=== PATIENT | male | born 1980 | race Caucasian/White ===

== ENCOUNTER 2018-06-18 17:09 | Emergency (ER) | payer OTHER ==
[2018-06-18] MEDS ORDERED: NS 1,000 ML IV ONE (17:30)
--- NOTE | 2018-06-18 17:31 | EDPHY ---
H & P Stated Complaint: L flank pn c early hematuria x2D, Hx kidney stone Time Seen by Provider: 06/18/18 17:20 HPI/ROS: Chief complaint: Left flank pain History of present illness: This is a 37-year-old male who presents to the emergency department for evaluation of left flank pain. Reports the onset of symptoms 2 days ago. He has had associated hematuria. Describes sharp pain radiating around toward the growing. He does have a history of kidney stones, he has had 4 5 and his life. They voiced pass on their own, not requiring surgical intervention. She states the pain is somewhat different than previous episodes which is wearing him. He denies other associated signs or symptoms including no fevers, no abdominal pain, no nausea, vomiting or diarrhea. Review of systems: A 10 point review of systems was obtained and other than described above was negative - Personal History Current Tetanus/Diphtheria Vaccine: Yes - Medical/Surgical History Hx Asthma: No Hx Chronic Respiratory Disease: No Hx Diabetes: No Hx Cardiac Disease: No Hx Renal Disease: No Hx Cirrhosis: No Hx Alcoholism: No Hx HIV/AIDS: No Hx Splenectomy or Spleen Trauma: No Other PMH: Kidney stones, asthma, - Social History Smoking Status: Never smoked - Physical Exam Exam: General Appearance: Alert, nontoxic. Eyes: Pupils equal and round no pallor or injection. ENT, Mouth: Mucous membranes moist. Respiratory: There are no retractions, lungs are clear to auscultation. Cardiovascular: Regular rate and rhythm. Gastrointestinal: Abdomen is soft and non tender, no masses, bowel sounds normal. Genitourinary: Left-sided CVA tenderness. Neurological: Alert and oriented x4. Skin: Warm and dry, no rashes. Musculoskeletal: Neck is supple non tender. Extremities are symmetrical, full range of motion. Psychiatric: Patient is oriented X 3, there is no agitation. Constitutional: Initial Vital Signs Temperature (C) 36.8 C 06/18/18 17:22 Heart Rate 84 06/18/18 17:22 Respiratory Rate 18 06/18/18 17:22 Blood Pressure 120/85 H 06/18/18 17:22 O2 Sat (%) 97 06/18/18 17:22 O2 Delivery Mode Room Air Allergies/Adverse Reactions: Penicillins Allergy (Verified 06/18/18 17:22) Medical Decision Making - Diagnostics Imaging Results: Imaging Impressions Abdomen/Pelvis CT 06/18/18 17:30 Impression: 1. An 11-mm calculus in the distal left ureter, with severe left hydronephrosis and hydroureter. There is no significant perinephric stranding around the left kidney and some renal cortical thinning suggesting this may be chronic. 2. Nonspecific prostate calcifications. 3. Degenerative disk disease at L3-L4. Results called and discussed with SABINA Addison, on June 18, 2018 at 1757. Attention: This CT examination is specifically designed to evaluate patients who are clinically suspected of having acute obstructive uropathy. This examination does not use radiographic contrast, and as such, provides only a limited evaluation of the abdomen, pelvis, and retroperitoneum. If there is further clinical suspicion for pathological conditions other than obstructive uropathy, a complete CT evaluation of the abdomen and pelvis utilizing intravenous, oral, and rectal contrast should be considered. Imaging: Discussed imaging studies w/ call person Radiologist ED Course/Re-evaluation: Patient is discussed with my secondary supervising physician Dr. Christopher Koenig. Patient presents to the emergency department for left flank pain. CT confirms a ureteral stone. It is very large in size, approximately 11 mm. Patient has remained well appearing the entire time in the emergency room. He has not required pain medicine. I have consulted with Dr. Wisdom of Urology. He is comfortable with this patient following up in clinic tomorrow. Patient was given contact information for Dr. Wisdom's office. I talked to the patient at length that he must follow up tomorrow with Dr. Wisdom for further evaluation and care. Strict return precautions were given. The patient voiced understanding and agreement with plan. Differential Diagnosis: Included but not limited to nephrolithiasis, pyelonephritis, cystitis, intra- abdominal pathology - Data Points Laboratory Results: Laboratory Results 06/18/18 17:35 06/18/18 17:35 06/18/18 06/18/18 06/18/18 18:30 17:35 17:35 WBC 7.50 10^3/uL 10^3/uL (3.80-9.50) RBC 4.66 10^6/uL 10^6/uL (4.40-6.38) Hgb 14.9 g/dL g/dL (13.7-17.5) Hct 43.7 % % (40.0-51.0) MCV 93.8 fL fL (81.5-99.8) MCH 32.0 pg pg (27.9-34.1) MCHC 34.1 g/dL g/dL (32.4-36.7) RDW 12.5 % % (11.5-15.2) Plt Count 261 10^3/uL 10^3/uL (150-400) MPV 10.5 fL fL (8.7-11.7) Neut % (Auto) 45.7 % % (39.3-74.2) Lymph % (Auto) 38.1 % % (15.0-45.0) [place] % (Auto) 11.5 % % (4.5-13.0) Eos % (Auto) 3.5 % % (0.6-7.6) Baso % (Auto) 0.8 % % (0.3-1.7) Nucleat RBC Rel Count 0.0 % % (0.0-0.2) Absolute Neuts (auto) 3.43 10^3/uL 10^3/uL (1.70-6.50) Absolute Lymphs (auto) 2.86 10^3/uL 10^3/uL (1.00-3.00) Absolute Monos (auto) 0.86 10^3/uL H 10^3/uL (0.30-0.80) Absolute Eos (auto) 0.26 10^3/uL 10^3/uL (0.03-0.40) Absolute Basos (auto) 0.06 10^3/uL 10^3/uL (0.02-0.10) Absolute Nucleated RBC 0.00 10^3/uL 10^3/uL (0-0.01) Immature Gran % 0.4 % % (0.0-1.1) Immature Gran # 0.03 10^3/uL 10^3/uL (0.00-0.10) Sodium 136 mEq/L mEq/L (135-145) Potassium 4.1 mEq/L mEq/L (3.5-5.2) Chloride 103 mEq/L mEq/L (97-110) Carbon Dioxide 23 mEq/l mEq/l (22-31) Anion Gap 10 mEq/L mEq/L (6-14) BUN 17 mg/dL mg/dL (7-23) Creatinine 0.9 mg/dL mg/dL (0.7-1.3) Estimated GFR > 60 Glucose 94 mg/dL mg/dL (70-100) Calcium 9.7 mg/dL mg/dL (8.5-10.4) Urine Color PALE YELLOW Urine Appearance CLEAR Urine pH 7.0 (5.0-7.5) Ur Specific [place] 1.006 (1.002-1.030) Urine Protein NEGATIVE (NEGATIVE) Urine Ketones NEGATIVE (NEGATIVE) Urine Blood 2+ H (NEGATIVE) Urine Nitrate NEGATIVE (NEGATIVE) Urine Bilirubin NEGATIVE (NEGATIVE) Urine Urobilinogen NEGATIVE EU EU (0.2-1.0) Ur Leukocyte Esterase TRACE H (NEGATIVE) Urine RBC 3-5 /hpf H /hpf (0-3) Urine WBC 5-10 /hpf H /hpf (0-3) Ur Epithelial Cells NONE SEEN /lpf /lpf (NONE-1+) Urine Bacteria TRACE /hpf H /hpf (NONE SEEN) Urine Mucus TRACE /lpf /lpf (NONE-1+) Urine Glucose NEGATIVE (NEGATIVE) Medications Given: Discontinued Medications Sodium Chloride (Ns) 1,000 mls @ 0 mls/hr IV EDNOW ONE; Wide Open PRN Reason: Protocol Stop: 06/18/18 17:31 Last Admin: 06/18/18 17:36 Dose: 1,000 mls Departure - Departure Disposition: Home, Routine, Self-Care Clinical Impression: Kidney stone on left side Condition: Fair Instructions: Kidney Stones (ED) Additional Instructions: Please call Urology tomorrow morning just after 9:00 a.m. At [phone]. Asked to speak with Guillermina. Tell uGillermina you were seen in the emergency room this evening, I talked with Dr. Wisdom and he wants to see you in the office that same day without fail. You MUST follow up with urology tomorrow If symptoms worsen or new symptoms develop return to the emergency room. Referrals: NONE *PRIMARY CARE P,. [Primary Care Provider] - As per Instructions Harshil Wisdom MD [Medical Doctor] - As per Instructions
[2018-06-18 17:59] LABS: PLATELET COUNT 261 10^3/uL (150-400)
[2018-06-18 19:16] VITALS: BP 139/81
== END 2018-06-18 19:16 | disposition home or self-care (01) ==
DX: N20.0 Calculus of kidney (principal)